=== PATIENT | male | born 1945 | race Caucasian/White ===

== ENCOUNTER 2017-01-23 21:31 | Emergency (ER) | payer OTHER ==
[~2017-01-23] VITALS: Ht 182.9 cm; Wt 117.9 kg
[~2017-01-23 21:31] MED LIST changes: -AMOXICILLIN875 M1 PO
--- NOTE | 2017-01-23 22:16 | ED GI/GU/ABDOMINAL COMPLAINT ---
History of Present Illness General Chief Complaint: General Adult Stated Complaint: HERNIA SURGERY THIS AM, CANT URINATE PER PT Source: patient Exam Limitations: no limitations Vital Signs & Intake/Output Vital Signs & Intake/Output Vital Signs Date Time Temp Pulse Resp B/P Pulse O2 O2 Flow FiO2 Ox Delivery Rate 01/23 2331 97.2 85 18 124/69 96 01/23 2148 98.6 89 20 112/68 95 Room Air ED Intake and Output 01/24 0000 01/23 1200 Intake Total Output Total 500 Balance -500 Output, Urine 500 Patient 260 lb Weight Allergies Coded Allergies: No Known Allergies (01/23/17) Reconcile Medications Amlodipine Besylate 5 MG TABLET 1 TAB PO DAILY BP (Reported) Ciprofloxacin HCl (Cipro) 250 MG TABLET 1 TAB PO BID infection Finasteride (Proscar) 5 MG TABLET 1 TAB PO DAILY BPH (Reported) Levothyroxine Sodium 150 MCG TABLET 1 TAB PO DAILY THYROID (Reported) Lisinopril 10 MG TABLET 1 TAB PO DAILY BP (Reported) Metformin HCl 1,000 MG TABLET 1 TAB PO BID DM (Reported) Metoprolol Tartrate 100 MG TABLET 1 TAB PO DAILY BP (Reported) Oxycodone HCl/Acetaminophen (Percocet 7.5-325 MG Tablet) 7.5 MG-325 MG TABLET 1 TAB PO TID PAIN (Reported) Simvastatin (Simvastatin*) 40 MG TABLET 1 TAB PO DAILY CHOLESTEROL (Reported) Tamsulosin HCl 0.4 MG CAP.ER.24H 1 CAP PO BID (Reported) Triage Note: TRIAGE: PT TO ER C/C UNABLE TO URINATE SINCE BEING D/C'D HOME S/P L INGUINAL HERNIA REPAIR. STATES HE URINATED A LITTLE FOR THEM BEFORE HE LEFT BUT HAS NOT GONE SINCE. HAS PAIN TO LOW ABD AND GROIN AREA THAT IS CONSTANT AND WORSENING SINCE ONSET THIS AFTERNOON. Triage Nurses Notes Reviewed? yes Onset: Gradual Duration: getting worse Timing: single episode today Quality/Severity: fullness Severity Numbers: 5 Location: suprapubic Radiation: no radiation HPI: Patient is a 71-year-old male with past medical history of chronic neck pain currently on opiates, BPH and episodes of urinary retention presents emergency room stating that today patient patient had a left inguinal hernia repair with mesh placement performed by surgeon Dr. Elizabeth in which she states that the surgery went well patient was able to urinate after the surgery however since 1400 today he's been unable to urinate. Patient complains of suprapubic abdominal pain gradually worsening. Denies any fever, chills, testicular swelling pain nausea vomiting. Prior to being evaluated by me the Ty catheter insertion was applied by nursing staff and which 500 mL of yellow urine was produced which patient had complete resolution of his presenting complaints of abdominal fullness. Patient does have an established urologist in [place] (NOEL MONSON) Past History Travel History Traveled to [facility] past 21 day No Medical History Any Pertinent Medical History? 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 No (NOEL MONSON) Review of Systems Review of Systems Constitutional: Reports: no symptoms. EENTM: Reports: no symptoms. Respiratory: Reports: no symptoms. Cardiovascular: Reports: no symptoms. GI: Reports: see HPI, abdominal pain. Genitourinary: Reports: see HPI. Musculoskeletal: Reports: no symptoms. Skin: Reports: no symptoms. Neurological/Psychological: Reports: no symptoms. Hematologic/Endocrine: Reports: no symptoms. Immunologic/Allergic: Reports: no symptoms. All Other Systems: Reviewed and Negative (NOEL MONSON) Physical Exam Physical Exam General Appearance: no apparent distress, alert Gastrointestinal: normal bowel sounds, soft, NOTED INCISION SITES INTACT NO ACTIVE DISCHARGE MILD GENERALIZED ABDOMINAL POINT TENDERNESS Comments: Well-developed well-nourished person in no acute distress HEENT: Normal EENT exam, . Neck: Supple, no lymphadenopathy, normal range of motion without pain or tenderness Back: Nontender, no CVA tenderness. Cardiovascular: Regular rate and rhythms no murmurs rubs or gallops, normal JVP Respiratory: Chest nontender. No respiratory distress.breath sounds clear to auscultation bilaterally Extremity: No edema, no calf tenderness to palpation, normal and equal pulses. Neuro: Alert oriented x3, motor sensory normal, Skin: No appreciable rash on exposed skin, skin is warm and dry. Psych: Mood and affect is normal, memory and judgment is normal. Core Measures ACS in differential dx? No Severe Sepsis Present: No Septic Shock Present: No (NOEL MONSON) Progress Differential Diagnosis: AAA, AMI, appendicitis, biliary colic, bowel obstruction , cholecystitis, diverticulitis, epididymitis, esophageal varices, gastritis, hepatitis, hernia, hemorrhoids, ischemic bowel, inflamm bowel dis, Jadyn-Addison tear, orchitis, pancreatitis, prostatitis, peptic ulcer, PUD/GERD, perforated viscous, pyelonephritis, SBO, testicular torsion, ureterolithiasis, urinary retention, urethritis, UTI/pyelo, URINE RETENTION, Plan of Care: Orders Procedure Date/time Status Ty, Insertion/Removal/Asses 01/23 2236 Active URINALYSIS 01/23 2218 Complete Laboratory Tests 01/23/172225: Urine Color YEL, Urine Clarity CLEAR, Urine pH 6.0, Ur Specific [place] >= 1.030 , Urine Protein 30 H, Urine Ketones TRACE H, Urine Nitrite NEG, Urine Bilirubin NEG, Urine Urobilinogen 0.2, Ur Leukocyte Esterase NEG, Ur Microscopic SEDIMENT EXAMINED, Urine RBC 3-5, Urine WBC 1-3 H, Ur Epithelial Cells RARE, Hyaline Casts 1-3 H, Urine Mucus FEW, Urine Hemoglobin TRACE-INTACT H, Urine Glucose NEG Again on initial examination patient already had the urine Ty catheter placed which patient currently has no complaints and has mild generalized abdominal point tenderness however this is most likely attributed to post surgical intervention performed today. Patient had urine unremarkable urinalysis patient was strongly advised to follow up with his established urologist and he will comply. Discussed disposition and plan with Dr. Finch who agrees (NOEL MONSON) Initial ED EKG: none (NOEL MONSON) Departure Departure Disposition: HOME OR SELF CARE Condition: Stable Clinical Impression Primary Impression: Urine retention Referrals: BRANDEE HICKS MD (PCP/Family) Additional Instructions: As discussed follow-up with your established urologist tomorrow For further evaluation treatment. Leave the Ty bag leg catheter on at all times and to follow-up with your urologist. Follow-up with your surgeon as directed. Continue all medications as directed. If symptoms worsen return to the emergency room Departure Forms: Customer Survey General Discharge Information (NOEL MONSON) PA/ORCHESTRA LEADER Co-Sign Statement Statement: ED Attending supervision documentation- [X] I saw and evaluated the patient. I have also reviewed all the pertinent lab results and diagnostic results. I agree with the findings and the plan of care as documented in the PA's/ORCHESTRA LEADER's documentation. [X] I have reviewed the ED Record and agree with the PA's/ORCHESTRA LEADER's documentation. [] Additions or exceptions (if any) to the PAs/ORCHESTRA LEADER's note and plan are summarized below: [] (JAMES BELTRAN,NANCY Hartman)
[2017-01-23 23:31] VITALS: BP 124/69
== END 2017-01-23 23:32 ==
LOC: ERH 21:31
DX: R33.9 Retention of urine, unspecified (principal)
CPT/HCPCS: 81001; J1885

== ENCOUNTER → 2017-01-23 | Day surgery (SDC) | payer OTHER ==
[~2017-01-23] VITALS: Ht 182.9 cm; Wt 117.9 kg
[~2017-01-23] MED LIST: AMLODIPINE BESYL5 M1 PO; AMOXICILLIN875 M1 PO; CIPRO250 M1 PO; FLOMAX0.4 M1 PO; LEVOTHYROXINE150 MCG PO; LISINOPRIL10 M1 PO; METFORMIN HCL1000 M1 PO; METOPROLOL TAR100 M1 PO; PERCOCET 7.5-31 EACH PO; PROSCAR5 M1 PO; SIMVASTATIN40 M1 PO; TAMSULOSIN HCL0.4 M1 PO
--- NOTE | 2017-01-23 12:14 | Operative Report ---
Operative/Inv Procedure Report Surgery Date: 01/23/17 Name of Procedure: Laparoscopic left inguinal hernia repair Pre-Operative Diagnosis: Left inguinal hernia Post-Operative Diagnosis: Same Estimated Blood Loss: scant Surgeon/Can Sealer: RICKEY BELTRAN,PAPO Carias/Robert MAYEN Anesthesia: general endotracheal tube Implants: Parietex mesh Operative/Procedure Note Note: After consent is brought to the operating room laid supine. Gen. anesthesia was obtained and his abdomen was prepped and draped. Skin was anesthetized with local anesthesia transverse incision made sharply. Dissection was taken down to the left side rectus fascia and incised transversely. Stay suture placed and the dissecting balloon placed down level the pubis. It was inflated under direct vision the camera then deflated and replaced a blunt Patel port. Gas was instilled. 2, 5 mm ports were placed in the midline after local anesthesia was instilled under direct vision the camera. The balloon and dissected the rectus muscle off the ceiling of her cavity. The epigastric vessels also dissected. We got back into the proper plane and peeled the preperitoneal tissues off of the lateral iliopubic tract. There is a large indirect hernia. We then delineated He's ligament. There is no direct hernia. There is a large amount of fatty tissue herniating through the indirect space. It was dissected free fluid cord structures then delivered reflected medially. Once were happy with the dissection, a piece of left-sided Parietex mesh was placed in the cavity. It was placed around the cord structures re-create the internal ring and cover the femoral and direct spaces. Once I was happy the placement of mesh the gas was allowed to escape on maintaining proper orientation of it. The fascia was closed 0 Vicryl suture. Skin incisions closed with 4-0 Vicryl. Steri-Strips and sterile dressing applied. Sponge and needle counts are correct Findings: indirect CC: KURT BELTRAN,BRANDEE
== END ==
LOC: STS 04:25
DX: K40.90 Unilateral inguinal hernia, without obstruction or gangrene, not specified as recurrent (principal); E11.9 Type 2 diabetes mellitus without complications; Z79.84 Long term (current) use of oral hypoglycemic drugs; I10 Essential (primary) hypertension; E07.9 Disorder of thyroid, unspecified; F17.290 Nicotine dependence, other tobacco product, uncomplicated; M19.90 Unspecified osteoarthritis, unspecified site
CPT/HCPCS: C1781; J0131; J0690; J2250

== ENCOUNTER 2017-01-27 03:34 | Emergency (ER) | payer OTHER ==
[2017-01-27 03:45] VITALS: BP 149/96
--- NOTE | 2017-01-27 04:23 | ED GI/GU/ABDOMINAL COMPLAINT ---
History of Present Illness General Chief Complaint: Male Genitourinary Problems Stated Complaint: UNABLE TO URINATE Source: patient Exam Limitations: no limitations Vital Signs & Intake/Output Vital Signs & Intake/Output Vital Signs Date Time Temp Pulse Resp B/P Pulse O2 O2 Flow FiO2 Ox Delivery Rate 01/27 0345 97.8 82 18 149/96 96 Room Air Allergies Coded Allergies: No Known Allergies (01/23/17) Reconcile Medications Amlodipine Besylate 5 MG TABLET 1 TAB PO DAILY BP (Reported) Ciprofloxacin HCl (Cipro) 250 MG TABLET 1 TAB PO BID infection Finasteride (Proscar) 5 MG TABLET 1 TAB PO DAILY BPH (Reported) Levothyroxine Sodium 150 MCG TABLET 1 TAB PO DAILY THYROID (Reported) Lisinopril 10 MG TABLET 1 TAB PO DAILY BP (Reported) Metformin HCl 1,000 MG TABLET 1 TAB PO BID DM (Reported) Metoprolol Tartrate 100 MG TABLET 1 TAB PO DAILY BP (Reported) Oxycodone HCl/Acetaminophen (Percocet 7.5-325 MG Tablet) 7.5 MG-325 MG TABLET 1 TAB PO TID PAIN (Reported) Simvastatin (Simvastatin*) 40 MG TABLET 1 TAB PO DAILY CHOLESTEROL (Reported) Tamsulosin HCl 0.4 MG CAP.ER.24H 1 CAP PO BID (Reported) Triage Note: PT HAS BEEN UNABLE TO VOID SINCE THIOS AM, HAS BEEN DRIBBLING HX OF SAME WITH RAMOS PLACEMENT Triage Nurses Notes Reviewed? yes HPI: Patient presents for evaluation of an inability to urinate over the course of today. Patient states that he had left groin hernia surgery on Saturday and had trouble emptying his bladder. He was evaluated in the emergency department and had a catheter placed. He was then seen by Dr. Moraes who removed the catheter. Began retaining again today. He is experiencing a severe constant suprapubic abdominal pain and urge to empty his bladder. Nothing seemed to make him feel better. Past History Travel History Traveled to [place] past 21 day No Medical History Any Pertinent Medical History? 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 No Review of Systems Review of Systems Constitutional: Reports: no symptoms. EENTM: Reports: no symptoms. Respiratory: Reports: no symptoms. Cardiovascular: Reports: no symptoms. GI: Reports: no symptoms. Genitourinary: Reports: see HPI. Musculoskeletal: Reports: no symptoms. Skin: Reports: no symptoms. Neurological/Psychological: Reports: no symptoms. Hematologic/Endocrine: Reports: no symptoms. Immunologic/Allergic: Reports: no symptoms. All Other Systems: Reviewed and Negative Physical Exam Physical Exam Gastrointestinal: see below Comments: Gen.: Well-nourished, well-developed, no acute respiratory distress. Head: Normocephalic, atraumatic. Eyes: Normal inspection bilaterally Ears: Normal inspection bilaterally Nose: Normal inspection Throat/mouth : Moist mucosa Neck: Supple, full range of motion, no goiter Lungs: Quiet respirations Back: Normal range of motion Abdomen: Soft, nontender, nondistended, normal bowel sounds (patient evaluated after Ramos catheter placement) Extremities: Normal range of motion grossly Neurologic: Cranial nerves grossly intact, speech is clear Skin: warm and dry Psychiatric: Calm, cooperative, no apparent delusions or hallucinations Core Measures ACS in differential dx? No Severe Sepsis Present: No Septic Shock Present: No Progress Differential Diagnosis: urinary retention, UTI/pyelo Plan of Care: Orders Procedure Date/time Status URINALYSIS 01/27 0356 Complete Laboratory Tests 01/27/17 0400: Urinalysis LIGHT H, Urine Color STRAW, Urine Clarity CLEAR, Urine pH 6.0, Ur Specific [place] 1.020, Urine Protein NEG, Urine Ketones NEG, Urine Nitrite NEG, Urine Bilirubin NEG, Urine Urobilinogen 0.2, Ur Leukocyte Esterase NEG, Ur Microscopic SEDIMENT EXAMINED, Urine RBC 1-3, Urine WBC 1-3 H, Urine Hemoglobin TRACE-INTACT H, Urine Glucose NEG Initial ED EKG: none Comments: Patient is feeling better after placement of a Ramos catheter. Departure Departure Disposition: HOME OR SELF CARE Condition: Stable Clinical Impression Primary Impression: Acute urinary retention Referrals: BRANDEE HICKS MD (PCP/Family) Additional Instructions: Follow-up with Dr. Moraes on Saturday for reevaluation. Notify your primary care doctor of this emergency department visit and treatment plan. Return if any concerns or sudden worsening. Departure Forms: Customer Survey General Discharge Information
== END 2017-01-27 04:49 ==
LOC: ERH 03:34
DX: R33.9 Retention of urine, unspecified (principal)
CPT/HCPCS: 81001

== ENCOUNTER 2017-02-23 14:51 | Emergency (ER) | payer OTHER ==
[~2017-02-23] VITALS: Ht 182.9 cm; Wt 113.9 kg
[2017-02-23 15:00] VITALS: BP 129/85
--- NOTE | 2017-02-23 15:45 | ED THROAT/DENTAL COMPLAINT ---
History of Present Illness General Chief Complaint: General Adult Stated Complaint: "I BITE MY TOUNGE" Source: patient Exam Limitations: no limitations Vital Signs & Intake/Output Vital Signs & Intake/Output Vital Signs Date Time Temp Pulse Resp B/P Pulse O2 O2 Flow FiO2 Ox Delivery Rate 02/23 1602 Room Air 02/23 1500 97.1 76 18 129/85 99 Room Air Allergies Coded Allergies: No Known Allergies (01/23/17) Reconcile Medications Amlodipine Besylate 5 MG TABLET 1 TAB PO DAILY BP (Reported) Amoxicillin 875 MG TABLET 1 TAB PO BID tongue wound prophylaxis Ciprofloxacin HCl (Cipro) 250 MG TABLET 1 TAB PO BID infection Finasteride (Proscar) 5 MG TABLET 1 TAB PO DAILY BPH (Reported) Levothyroxine Sodium 150 MCG TABLET 1 TAB PO DAILY THYROID (Reported) Lisinopril 10 MG TABLET 1 TAB PO DAILY BP (Reported) Metformin HCl 1,000 MG TABLET 1 TAB PO BID DM (Reported) Metoprolol Tartrate 100 MG TABLET 1 TAB PO DAILY BP (Reported) Oxycodone HCl/Acetaminophen (Percocet 7.5-325 MG Tablet) 7.5 MG-325 MG TABLET 1 TAB PO TID PAIN (Reported) Simvastatin (Simvastatin*) 40 MG TABLET 1 TAB PO DAILY CHOLESTEROL (Reported) Tamsulosin HCl 0.4 MG CAP.ER.24H 1 CAP PO BID (Reported) Triage Note: C/O LEFT SIDED TONGUE SWELLING X 1 HOUR, STATES HE BIT HIS TONGUE THIS AM. ALSO STATES HE IS HAVING DIFFICULTY SWALLOWING AND CANNOT STRAIGHTEN NECK. Triage Nurses Notes Reviewed? yes HPI: Patient is a 71 year old male presents complaining of pain to the left side of his tongue with mild associated swelling. Patient accidentally bit his tongue this morning. Patient noticed the swelling this afternoon at 1400. Patient called his dentist and was instructed to come to the emergency department for evaluation due to his diabetes and the concern for infection. Pain is currently minimal. Patient denies difficulty swallowing, difficulty breathing. (SHAN MAYEN,PEYTON) Past History Travel History Traveled to [place] past 21 day No Medical History Any Pertinent Medical History? 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 No (PEYTON MULLINS) Review of Systems Review of Systems Constitutional: Denies: chills, fever. EENTM: Reports: see HPI. Denies: throat swelling, tooth pain. Respiratory: Denies: cough, short of breath. Cardiovascular: Denies: chest pain. GI: Denies: abdominal pain. Musculoskeletal: Reports: neck pain (CHRONIC, UNCHANGED). Skin: Reports: no symptoms. Neurological/Psychological: Reports: no symptoms. Immunologic/Allergic: Reports: no symptoms. (PEYTON MULLINS) Physical Exam Physical Exam General Appearance: well developed/nourished, alert, awake Head: atraumatic, normal appearance Eyes: Bilateral: normal appearance. Nose: normal inspection Mouth/Throat: abrasion and 2-3mm superficial wound to left lateral tongue. Mild surrounding swelling. No stridor. No angioedema of lips or pharynx Neck: normal inspection, supple, full range of motion Cardiovascular/Respiratory: regular rate/rhythm, no respiratory distress Back: normal inspection, normal range of motion Neurologic/Psych: awake, alert, oriented x 3, normal gait, normal mood/affect Skin: intact, normal color, warm/dry Core Measures ACS in differential dx? No Severe Sepsis Present: No Septic Shock Present: No (PEYTON MULLINS) Progress Differential Diagnosis: tongue laceration/abrasion, angioedema, anaphylaxis Plan of Care: Patient is on conchita inhibitor. Swelling appears secondary to trauma, does not appear to be angioedema. Discussed with patient monitoring his tongue swelling and need to return immediately if any worsening. Discussed with Dr. Finch. (PEYTON MULLINS) Departure Departure Time of Disposition: 1555 Disposition: HOME OR SELF CARE Condition: Stable Clinical Impression Primary Impression: Abrasion of tongue Qualifiers: Encounter type: initial encounter Qualified Code: S00.512A - Abrasion of oral cavity, initial encounter Referrals: BRANDEE HICKS MD (PCP/Family) Additional Instructions: Return to the emergency department immediately if any further swelling of your tongue, increasing pain, fevers, drainage from the tongue, or worsening of symptoms. Departure Forms: Customer Survey General Discharge Information Prescriptions: Current Visit Scripts Amoxicillin 1 TAB PO BID #10 TAB (SHAN MAYEN,PEYTON) PA/PIECER Co-Sign Statement Statement: ED Attending supervision documentation- [X] I saw and evaluated the patient. I have also reviewed all the pertinent lab results and diagnostic results. I agree with the findings and the plan of care as documented in the PA's/PIECER's documentation. [X] I have reviewed the ED Record and agree with the PA's/PIECER's documentation. [] Additions or exceptions (if any) to the PAs/PIECER's note and plan are summarized below: [] (JAMES BELTRAN,NANCY Hartman)
[2017-02-23] MEDS ORDERED: AMOXICILLIN875 M1 PO (15:56)
== END 2017-02-23 16:00 ==
LOC: ERH 14:51
DX: S00.512A Abrasion of oral cavity, initial encounter (principal); X58.XXXA Exposure to other specified factors, initial encounter; Y92.9 Unspecified place or not applicable; Y93.9 Activity, unspecified